=== PATIENT | female | born 2000 | race Caucasian/White ===

== ENCOUNTER → 2019-11-27 07:20 | Observation (INO) ==
[2019-11-27 05:48] LABS: Bilirubin,Urine Negative (Negative); Blood,Urine Negative (Negative); Clarity,Urine Cloudy (Clear); Color,Urine Yellow (Yellow); Glucose,Urine (UA) Normal (Normal); Ketones,Urine Negative (Negative); Leukocyte Esterase,Urine Large (Negative); Nitrite,Urine Negative (Negative); Protein,Urine Trace mg/dL (Neg-Trace); Specific Gravity,Urine 1.024 (1.010-1.025); Urobilinogen,Urine Normal (Normal)
[2019-11-27 05:51] LABS: Bacteria,Urine Moderate per hpf (None-Few); Squamous Epithelial Cell,Urine Many per lpf (None-Few)
[2019-11-27 06:02] LABS: Hyaline Casts,Urine Few per lpf (None-Few); Mucus,Urine Many per lpf (Few); Sperm,Urine Present (None Seen)
== END | disposition home or self-care (01) ==
LOC: 1NENULAB
PROVIDERS: ADMIT Advanced Practice Midwife; ATTEND Advanced Practice Midwife